=== PATIENT | male | born 1970 | race Asian ===

== ENCOUNTER 2018-12-26 08:38 | Outpatient (CLI) | payer OTHER ==
[2018-12-26 11:19] LABS: Hematocrit 41.5 % (35.5-45.6); Hemoglobin 13.8 gm/dl (11.8-15.2); Mean Corpuscular HGB Conc 33 % (32-34); Mean Corpuscular Volume 90 fl (84-94); Platelet Count 365 K/mm3 (140-440); Red Blood Count 4.62 M/mm3 (3.65-5.03); Red Cell Distribution Width 13.5 % (13.2-15.2)
[2018-12-26 12:31] LABS: Alanine Aminotransferase 36 units/L (7-56); Albumin 4.7 g/dL (3.9-5); BUN/Creatinine Ratio 14; Blood Urea Nitrogen 17 mg/dL (9-20); Calcium 9.6 mg/dL (8.4-10.2); Chol/HDL Ratio 3.64 %; HDL Cholesterol 39 mg/dL (40-59); Hemolysis Index 8; LDL Cholesterol,Direct 92 mg/dL (50-130)
== END 2018-12-26 08:39 | disposition home or self-care (01) ==
LOC: LAB 08:38
PROVIDERS: ATTEND Internal Medicine
DX: Z00.01 Encounter for general adult medical examination with abnormal findings (principal); E78.5 Hyperlipidemia, unspecified; R73.03 Prediabetes; N20.0 Calculus of kidney; G47.19 Other hypersomnia; G24.9 Dystonia, unspecified; R31.29 Other microscopic hematuria; R20.2 Paresthesia of skin
CPT/HCPCS: 36415; 80053; 80061; 83036; 84443; 85027